=== PATIENT | female | born 1965 | race American Indian/Alaskan Native ===

== ENCOUNTER 2017-12-26 22:48 | Emergency (ER) | payer MEDICAID ==
[2017-12-26] MEDS ORDERED: ASPIRIN ONE (23:19)
[2017-12-26] MEDS ORDERED: ASPIRIN PO ONE (23:24)
[2017-12-26 23:49] LABS: Basophils # (Auto) 0.1 K/mm3 (0.0-0.1); Eosinophils # (Auto) 0.5 K/mm3 (0.0-0.4); Eosinophils % (Auto) 6.5 % (0.0-4.3); Hematocrit 41.2 % (30.3-42.9); Hemoglobin 13.6 gm/dl (10.1-14.3); Lymphocytes # (Auto) 1.9 K/mm3 (1.2-5.4); Lymphocytes % (Auto) 27.1 % (13.4-35.0); Mean Corpuscular HGB Conc 33 % (30-34); Mean Corpuscular Hemoglobin 28 pg (28-32); Mean Corpuscular Volume 84 fl (79-97); Monocytes # (Auto) 0.7 K/mm3 (0.0-0.8); Monocytes % (Auto) 10.5 % (0.0-7.3); Platelet Count 243 K/mm3 (140-440)
[2017-12-26 23:59] LABS: BUN/Creatinine Ratio 16; Blood Urea Nitrogen 11 mg/dL (7-17); Calcium 9.3 mg/dL (8.4-10.2); Hemolysis Index 9
--- NOTE | 2017-12-27 04:34 | Emergency Department Report ---
ED Chest Pain HPI - General Chief Complaint: Chest Pain Stated Complaint: CHEST PAIN Time Seen by Provider: 12/27/17 04:19 Source: patient Mode of arrival: Ambulatory Limitations: No Limitations - History of Present Illness Initial Comments: Patient said for the last few days she's been having chest pain however at about 3 PM she started having more intense left sided chest pain radiates into the left upper extremity of moderate intensity with no aggravating or relieving factors. She also had a headache. She said the chest pain is a lot better right now. She said a family member gave her a pain medication which helped -: Gradual Onset: during rest Pain Location: left chest Pain Radiation: none Severity: moderate Severity scale (0 -10): 5 Quality: sharp Consistency: constant Improves With: other (slightly with pain medication) Worsens With: nothing Treatments Prior to Arrival: none - Related Data Home Medications Medication Instructions Recorded Confirmed Last Taken No Known Home Medications [No 12/26/17 12/26/17 Unknown Reported Home Medications] Allergies Allergy/AdvReac Type Severity Reaction Status Date / Time No Known Allergies Allergy Verified 12/27/17 00:25 Heart Score - HEART Score History: Slightly suspicious EKG: Normal Age: 45-65 Risk factors: No known risk factors Troponin: < normal limit HEART Score: 1 ED Review of Systems ROS: Stated complaint: CHEST PAIN Other details as noted in HPI Comment: All other systems reviewed and negative ED Past Medical Hx - Past Medical History Previous Medical History?: No - Surgical History Past Surgical History?: No - Social History Smoking Status: Never Smoker Substance Use Type: None - Medications Home Medications: Home Medications Medication Instructions Recorded Confirmed Last Taken Type No Known Home Medications [No 12/26/17 12/26/17 Unknown History Reported Home Medications] ED Physical Exam - General Limitations: No Limitations General appearance: alert, in no apparent distress - Head Head exam: Present: atraumatic, normocephalic - Eye Eye exam: Present: normal appearance - ENT ENT exam: Present: mucous membranes moist - Neck Neck exam: Present: normal inspection - Respiratory Respiratory exam: Present: normal lung sounds bilaterally. Absent: respiratory distress - Cardiovascular Cardiovascular Exam: Present: regular rate, normal rhythm, other (tenderness to palpation of the left chest wall). Absent: systolic murmur, diastolic murmur, rubs, gallop - GI/Abdominal GI/Abdominal exam: Present: soft, normal bowel sounds. Absent: tenderness - Rectal Rectal exam: Present: deferred - Extremities Exam Extremities exam: Present: normal inspection - Back Exam Back exam: Present: normal inspection - Neurological Exam Neurological exam: Present: alert, oriented X3 - Psychiatric Psychiatric exam: Present: normal affect, normal mood - Skin Skin exam: Present: warm, dry, intact, normal color. Absent: rash ED Course Vital Signs 12/26/17 12/27/17 12/27/17 23:11 02:53 03:05 Temperature 98.4 F 98.4 F Pulse Rate 52 L 57 L Respiratory 18 20 20 Rate Blood Pressure 100/60 Blood Pressure 90/60 [Left] O2 Sat by Pulse 97 100 100 Oximetry ED Medical Decision Making - Lab Data Result diagrams: 12/26/17 23:27 12/26/17 23:27 - EKG Data -: EKG Interpreted by Me EKG shows normal: sinus rhythm (rate of 61), axis (normal), intervals (normal), QRS complexes (normal), ST-T waves (normal) Critical care attestation.: If time is entered above; I have spent that time in minutes in the direct care of this critically ill patient, excluding procedure time. ED Disposition Clinical Impression: Atypical chest pain Disposition: DC-01 TO HOME OR SELFCARE Is pt being admited?: No Does the pt Need Aspirin: No Condition: Stable Instructions: Chest Pain (ED) Additional Instructions: Take Tylenol as needed for pain Referrals: PRIMARY CARE, [Primary Care Provider] - 3-5 Days Time of Disposition: 04:43 Print Language: TAMAZIGHT
[2017-12-27 05:07] VITALS: BP 101/59
== END 2017-12-27 05:30 | disposition home or self-care (01) ==
LOC: ED 22:48
DX: R07.89 Other chest pain (principal)
CPT/HCPCS: 36415; 80048; 84484; 84703; 85025; 93005; 93010; 99284

== ENCOUNTER 2018-10-21 12:11 | Emergency (ER) | payer MEDICAID, OTHER ==
[2018-10-21 12:35] VITALS: BP 105/67
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
[2018-10-21] MEDS ORDERED: IBUPROFEN PO ONE (14:38)
[2018-10-21] MEDS ORDERED: FLEXERIL PO ONE (14:38)
[2018-10-21] MEDS ORDERED: NORCO 5/325 PO ONE (14:38)
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
== END 2018-10-21 15:30 | disposition home or self-care (01) ==
LOC: ED 12:11
DX: S20.219A Contusion of unspecified front wall of thorax, initial encounter (principal); M54.9 Dorsalgia, unspecified; M62.830 Muscle spasm of back; M25.569 Pain in unspecified knee; V89.2XXA Person injured in unspecified motor-vehicle accident, traffic, initial encounter; Y93.89 Activity, other specified; Y92.89 Other specified places as the place of occurrence of the external cause; Y99.8 Other external cause status
CPT/HCPCS: 71046; 72040; 93005; 93010; 99283